=== PATIENT | female | born 1985 | race Caucasian/White ===

== ENCOUNTER 2022-11-29 22:45 | Emergency (ER) | payer BC, OTHER ==
[2022-11-29 22:53] VITALS: BP 117/71; PULSE 75; RESP 18; TEMP 97.9; BMI 25.8
== END 2022-11-30 00:25 | disposition home or self-care (01) ==
LOC: JER 22:45
DX: R51.9 Headache, unspecified (principal)
CPT/HCPCS: 99282-25

== ENCOUNTER 2023-12-02 07:10 | Inpatient (IN) | payer BC ==
[2023-12-02] MEDS: ELECTROLYTE-148 SOLN 1,000 ML IV SCH (07:45)
[2023-12-02 08:05] VITALS: BMI 26.6
[2023-12-02] MEDS: OXYTOCIN 30 UNITS in 0.9% NS 30 UNIT/500 ML INFUS.BAG IVPB SCH (08:30)
[2023-12-02] MEDS: CLINDAMYCIN 600MG PREMIX IVPB 600 MG/50 ML BAG IVPB SCH (08:46)
[2023-12-02 08:50] LABS: BASO % 0.4 % (0-2.0); EOS % 1.3 % (0-4.5); HEMATOCRIT 36.7 % (32.4-45.2); HEMOGLOBIN 12.9 GM/dL (10.7-15.3); LYMPH % 18.6 % (8-40); MCHC 35.1 g/dl (32.0-36.0); MEAN PLT VOLUME 8.3 fl (7.5-11.1); MONO % 7.5 % (3.8-10.2); NEUT % 72.2 % (42.8-82.8); PLATELET COUNT 199 10^3/uL (134-434); RDW 13.9 % (11.6-15.6); WHITE BLOOD COUNT 9.2 K/mm3 (4.0-10.0)
[2023-12-02 08:58] LABS: INR 0.86 (0.83-1.09); PROTHROMBIN TIME (PATIENT) 9.8 SEC (9.7-13.0)
[2023-12-02 09:01] LABS: ACTIVATED PTT 23.9 SECONDS (25.2-36.5)
[2023-12-02 09:25] LABS: POTASSIUM 3.7 mmol/L (3.5-5.1)
[2023-12-02 09:27] LABS: CALCIUM 8.9 mg/dL (8.5-10.1)
[2023-12-02 09:28] LABS: ALBUMIN 2.6 g/dl (3.4-5.0); BLOOD UREA NITROGEN 6.6 mg/dL (7-18)
[2023-12-02 09:31] LABS: CREATININE 0.4 mg/dL (0.55-1.3)
[2023-12-02 09:32] LABS: BILIRUBIN,TOTAL 0.5 mg/dL (0.2-1); TOT PROT 5.7 g/dl (6.4-8.2)
[2023-12-02 12:15] LABS: HIV INTERPRETATION NEGATIVE (NEGATIVE)
[2023-12-02] MEDS ORDERED: FENTANYL/BUPIVACAINE/NS/PF - PCEA - 50 ML DISP.SYRIN EP ONE (16:00)
[2023-12-02] MEDS: FENTANYL/BUPIVACAINE/NS/PF - PCEA - 50 ML DISP.SYRIN EP SCH (16:25)
[2023-12-02] MEDS ORDERED: NALOXONE HCL 0.4 MG/ML VIAL IVPUSH PRN (16:53)
[2023-12-02] MEDS ORDERED: LIDOCAINE HCL 1% PRESERVATIVE FREE - 30ML VIAL ONE (19:24)
[2023-12-02] MEDS ORDERED: OXYTOCIN 20 UNITS in 0.9% NS 20 UNIT/1,000 ML INFUS.BAG IV ONE (19:24)
[2023-12-02] MEDS: OXYTOCIN 20 UNITS in 0.9% NS 20 UNIT/1,000 ML INFUS.BAG IV SCH (19:45)
[2023-12-02 20:27] LABS: CORD BASE EXCESS -2.9 mmol/L (0-2); CORD HCO3 21.7 mmHg (20-29); CORD PCO2 37.8 mmHg (30-78); CORD pH 7.377 (7.14-7.44)
[2023-12-02 20:28] LABS: CORD HCO3 23.3 mmHg (20-29); CORD PCO2 53.9 mmHg (30-78); CORD pH 7.253 (7.14-7.44)
[2023-12-02] MEDS ORDERED: BISACODYL 10 MG SUPP.RECT RC PRN (20:34)
[2023-12-02] MEDS ORDERED: METHYLERGONOVINE MALEATE 0.2 MG/1 ML AMP IM PRN (20:34)
[2023-12-02] MEDS ORDERED: BENZOCAINE 28 GM HEMORRHOIDAL OINTMENT TP PRN (20:34)
[2023-12-02] MEDS ORDERED: oxyCODONE HCL 5 MG TABLET PO PRN (20:34)
[2023-12-02] MEDS: IBUPROFEN 600 MG TABLET (FP) PO PRN (23:32)
[2023-12-02] MEDS: BENZOCAINE 20% 57 GM BOTTLE TP PRN (23:33)
[2023-12-02] MEDS: WITCH HAZEL 50% (TUCKS) 40 PAD/JAR PAD TP PRN (23:33)
[2023-12-03] MEDS: ACETAMINOPHEN 325 MG TABLET (FP) PO PRN (00:51)
[2023-12-03 07:02] LABS: BASO % 0.3 % (0-2.0); EOS % 1.1 % (0-4.5); HEMATOCRIT 35.7 % (32.4-45.2); HEMOGLOBIN 12.1 GM/dL (10.7-15.3); LYMPH % 13.2 % (8-40); MCHC 33.8 g/dl (32.0-36.0); MEAN CELL VOLUME 94.6 fl (80-96); MEAN PLT VOLUME 8.3 fl (7.5-11.1); MONO % 7.6 % (3.8-10.2); NEUT % 77.8 % (42.8-82.8); PLATELET COUNT 171 10^3/uL (134-434); RBC 3.77 M/mm3 (3.60-5.2); RDW 13.7 % (11.6-15.6); WHITE BLOOD COUNT 14.4 K/mm3 (4.0-10.0)
[2023-12-03] MEDS: FLU VACCINE (FLULAVAL) PF 45 MCG/0.5 ML SYRINGE 2024-2025 IM ONE (10:01)
[2023-12-03] MEDS: DIPHTH,PERTUSS(ACELL),TET 0.5 ML DISP.SYRIN IM ONE (10:03)
[2023-12-03] MEDS: SENNOSIDES/DOCUSATE COMBO (SENNA PLUS) TABLET (UD) PO PRN (21:10)
[2023-12-03 21:29] VITALS: RESP 16
[2023-12-04 09:11] VITALS: BP 98/64; PULSE 77; TEMP 97
[2023-12-04] MEDS: BISACODYL 10 MG SUPP.RECT PR ONE (11:21)
== END 2023-12-04 15:36 | disposition home or self-care (01) | DRG 807 ==
LOC: JLDR 07:10 → J3W 22:55
PROVIDERS: ADMIT Obstetrics & Gynecology; ATTEND Obstetrics & Gynecology
PROC: 10E0XZZ Delivery of Products of Conception, External Approach (ICD-10-PCS; principal; 2023-12-02)
PROC: 0W8NXZZ Division of Female Perineum, External Approach (ICD-10-PCS; 2023-12-02)
DX: O48.0 Post-term pregnancy (principal); O69.81X0 Labor and delivery complicated by cord around neck, without compression, not applicable or unspecified; Z3A.40 40 weeks gestation of pregnancy; Z37.0 Single live birth
CPT/HCPCS: 36415; 36600; 59409; 80053; 82803; 82962; 85025; 85610; 85730; 86780; 86850; 86900; 86901; 87389; 90656; 90715; G0008